=== PATIENT | female | born 1985 | race Two or more races ===

== ENCOUNTER 2020-09-02 04:56 | Inpatient (IN) | payer OTHER ==
[~2020-09-02] VITALS: Ht 165.1 cm; Wt 117.9 kg
[2020-09-02] MEDS ORDERED: PRENATAL TABLE1 EAC1 PO (06:19)
[2020-09-02] MEDS ORDERED: CHILDREN'S ASPI81 MG PO (06:19)
[2020-09-02] MEDS ORDERED: LABETALOL HCL200 MG PO (06:19)
== END 2020-09-04 14:30 | disposition home or self-care (01) | DRG 768 ==
LOC: OB/GYN 04:56 → LDR 04:56 → O/R 13:21 → OB/GYN 15:58
PROVIDERS: ADMIT Obstetrics & Gynecology; ATTEND Obstetrics & Gynecology
PROC: 0W3R7ZZ Control Bleeding in Genitourinary Tract, Via Natural or Artificial Opening (ICD-10-PCS; 2020-09-02)
PROC: 0UDB7ZZ Extraction of Endometrium, Via Natural or Artificial Opening (ICD-10-PCS; 2020-09-02)
PROC: 10907ZC Drainage of Amniotic Fluid, Therapeutic from Products of Conception, Via Natural or Artificial Opening (ICD-10-PCS; 2020-09-02)
PROC: 3E033VJ Introduction of Other Hormone into Peripheral Vein, Percutaneous Approach (ICD-10-PCS; 2020-09-02)
PROC: 4A1HXFZ Monitoring of Products of Conception, Cardiac Rhythm, External Approach (ICD-10-PCS; 2020-09-02)
PROC: 10E0XZZ Delivery of Products of Conception, External Approach (ICD-10-PCS; principal; 2020-09-02 13:45)
DX: O10.02 Pre-existing essential hypertension complicating childbirth (principal); O72.1 Other immediate postpartum hemorrhage; Z37.0 Single live birth; Z3A.39 39 weeks gestation of pregnancy; Z20.822 Contact with and (suspected) exposure to COVID-19

== ENCOUNTER 2020-09-06 18:43 | Emergency (ER) | payer OTHER ==
[~2020-09-06] VITALS: Ht 165.1 cm; Wt 117.9 kg
[~2020-09-06 18:43] MED LIST: CHILDREN'S ASPI81 MG PO; LABETALOL HCL200 MG PO; PRENATAL TABLE1 EAC1 PO
[2020-09-06] MEDS ORDERED: PRENATAL VITAM1 EAC7 PO (19:32)
== END 2020-09-06 22:28 | disposition home or self-care (01) ==
LOC: ER 18:43
DX: N39.0 Urinary tract infection, site not specified (principal); R10.2 Pelvic and perineal pain